=== PATIENT | male | born 1990 | race African-American/Black ===

== ENCOUNTER 2020-03-12 09:12 | Outpatient (REF) | payer SELFPAY | END 2020-03-12 09:13 | disposition home or self-care (01) | LOC: HO.LAB 09:12 | PROVIDERS: Visit Provider Internal Medicine | DX: Z20.828 Contact with and (suspected) exposure to other viral communicable diseases (principal) | CPT/HCPCS: C9803; U0003 ==

== ENCOUNTER 2020-04-19 07:00 | Outpatient (REF) | payer SELFPAY | END 2020-04-19 07:01 | disposition home or self-care (01) | LOC: HO.LAB 07:00 | PROVIDERS: Visit Provider Internal Medicine | DX: Z20.828 Contact with and (suspected) exposure to other viral communicable diseases (principal) | CPT/HCPCS: C9803; U0003 ==

== ENCOUNTER 2020-08-12 07:46 | Outpatient (REF) | payer OTHER, SELFPAY ==
[2020-08-12 08:39] LABS: COVID-19 Test Positive (Negative); IDNOW Serial# 55D5AD1C
== END 2020-08-12 07:47 | disposition home or self-care (01) ==
LOC: HO.LAB 07:46
PROVIDERS: Visit Provider Internal Medicine
DX: Z20.822 Contact with and (suspected) exposure to COVID-19 (principal)
CPT/HCPCS: 36415; 87635; C9803